=== PATIENT | male | born 1990 | race Caucasian/White ===

== ENCOUNTER 2021-06-01 16:29 | Emergency (ER) | payer SELFPAY ==
[~2021-06-01 16:29] MED LIST: Iopamidol 370 76% 100 ML VIAL ONE
== END 2021-06-01 19:20 | disposition home or self-care (01) ==
LOC: NAV ERS 16:29
DX: F41.9 Anxiety disorder, unspecified (principal); Z79.899 Other long term (current) drug therapy; J45.909 Unspecified asthma, uncomplicated; F17.290 Nicotine dependence, other tobacco product, uncomplicated
CPT/HCPCS: 71275; Q9967